=== PATIENT | female | born 1985 | race Caucasian/White ===

== ENCOUNTER 2021-08-16 15:47 | Emergency (ER) | payer OTHER ==
[2021-08-16 17:14] LABS: BASOPHIL 0.2 % (0-2); HCT 39.3 % (37.0-47.0); HGB 13.2 g/dl (12.5-16.0); LYMPHOCYTE 15.4 % (15-48); MCH 31.4 pg (25.0-31.0); MCHC 33.6 g/dL (32.0-36.0); MCV 93.3 fL (78.0-100.0); MONOCYTE 4.3 % (0-12); MPV 9.3 fL (6.0-9.5); NEUTROPHIL 78.8 % (41-80); NRBC 0; PLT 288 K/uL (150-400); RBC 4.21 M/uL (4.20-5.40); RDW 12.7 % (11.5-14.0); WBC 13.5 K/uL (4.0-10.5)
[2021-08-16 17:22] LABS: BILIRUBIN NEGATIVE (NEGATIVE); BLOOD 1+ Ery/uL (NEGATIVE); CLARITY CLEAR (CLEAR); COLOR YELLOW (YELLOW); GLUCOSE (U) NORMAL (NORMAL); LEUKOCYTES NEGATIVE Leu/uL (NEGATIVE); NITRITE POSITIVE (NEGATIVE); PROTEIN NEGATIVE (NEGATIVE); SPECIFIC GRAVITY 1.025 (1.001-1.030); UROBILINOGEN 0.2 mg/dL (0.2-1.0)
[2021-08-16 17:30] LABS: BACTERIA TRACE; URINARY WBC RARE
[2021-08-16 17:31] LABS: AMORPHOUS PHOSPHATE CRYSTALS MODERATE
[2021-08-16 17:36] LABS: ALBUMIN 4.4 g/dL (3.4-5.0); BILIRUBIN - TOTAL 0.1 mg/dL (0.2-1.0); CREATININE 0.63 mg/dL (0.51-0.95); GLOBULIN (CALCULATION) 3.6 g/dL
[2021-08-16 17:48] LABS: CORONAVIRUS 2019 SARS-COV-2 NEGATIVE (NEGATIVE); INFLUENZA A NAA NEGATIVE (NEGATIVE)
[2021-08-16] MEDS ORDERED: PRENATAL ONE D1 EACH PO (18:42)
[2021-08-16] MEDS ORDERED: REGLAN5 MG PO (18:42)
[2021-08-16] MEDS ORDERED: CEPHALEXIN500 MG PO (18:44)
== END 2021-08-16 19:23 | disposition home or self-care (01) ==
LOC: FER 15:47
PROVIDERS: Physician Assistant
DX: O23.11 Infections of bladder in pregnancy, first trimester (principal); N30.00 Acute cystitis without hematuria; O99.331 Smoking (tobacco) complicating pregnancy, first trimester; F17.210 Nicotine dependence, cigarettes, uncomplicated; Z3A.01 Less than 8 weeks gestation of pregnancy; Z20.822 Contact with and (suspected) exposure to COVID-19; Z28.311 Partially vaccinated for COVID-19
CPT/HCPCS: 36415; 76805; 80053; 81001; 84702; 85025; U0002